=== PATIENT | male | born 1970 | race Caucasian/White ===

== ENCOUNTER → 2017-10-13 | Outpatient (CLI) | payer BC ==
[2017-10-13 14:52] LABS: Basophils # (A) 0.1 k/uL (0-0.2); Basophils % (A) 0 %; Eosinophils # (A) 0.3 k/uL (0-0.7); Eosinophils % (A) 3 %; HCT 44.6 % (39.0-53.0); Lymphocytes # (A) 1.4 k/uL (1.0-4.8); Lymphocytes % (A) 11 %; MCH 30.4 pg (25.0-35.0); MCHC 33.7 g/dL (31.0-37.0); MCV 90.3 fL (80.0-100.0); Mean Platelet Volume 7.3; Monocytes # (A) 0.8 k/uL (0-1.0); Monocytes % (A) 6 %; Neutrophils # (A) 9.9 k/uL (1.3-7.7); Neutrophils % (A) 79 %; Platelet Count 231 k/uL (150-450); RBC 4.94 m/uL (4.30-5.90); RDW 12.8 % (11.5-15.5); WBC 12.5 k/uL (3.8-10.6)
--- NOTE | 2017-10-13 15:16 | XR ---
EXAMINATION TYPE: XR chest 2V DATE OF EXAM: 10/13/2017 COMPARISON: None HISTORY: 47-year-old male coughing, bronchitis TECHNIQUE: Frontal and lateral views FINDINGS: The cardiomediastinal silhouette, aorta, and pulmonary vasculature are within normal limits. Mild dif fuse bronchial wall thickening. Interstitial prominence. No consolidation, pleural effusion, or pneum othorax. ACDF hardware. IMPRESSION: Findings suggest bronchitis or asthma. No focal pneumonia.
== END | disposition home or self-care (01) ==
LOC: PROCWHC3 14:34
PROVIDERS: ATTEND Internal Medicine
DX: J40 Bronchitis, not specified as acute or chronic (principal); J12.9 Viral pneumonia, unspecified; J06.9 Acute upper respiratory infection, unspecified; B99.9 Unspecified infectious disease
CPT/HCPCS: 36415; 71046; 85025; 87502

== ENCOUNTER → 2017-11-04 | Outpatient (CLI) | payer BC ==
--- NOTE | 2017-11-05 05:32 | CT ---
EXAMINATION TYPE: CT urogram wo/w con DATE OF EXAM: 11/04/2017 COMPARISON: NONE HISTORY: 27-year-old male Lower abdominal pain, difficulty urinating and microscopic hematuria. TECHNIQUE: Contiguous axial scanning of the abdomen and pelvis performed with IV Contrast, patient in jected with 100 mL of Isovue 300. Delayed images through the kidneys and bladder were obtained. Coron al/sagittal reconstructions performed. 3-D reconstructions generated on a dedicated independent works tation. CT DLP: 2248.4 mGycm Automated exposure control for dose reduction was used. FINDINGS: Heart is normal size without pericardial effusion. Mild dependent atelectasis posterior lung bases. Tiny hiatal hernia. A couple scattered subcentimeter hypodensities in the liver too small for accurate CT characterizatio n, probable cyst. Small amount of focal fat along the anterior falciform ligament. Liver upper limits of normal in size at 16.7 cm. Portal venous system is patent. No biliary ductal dilatation. Gallbladder, adrenal glands, spleen, and pancreas appear within normal limits. Small fatty umbilical hernia. No nephrolithiasis or hydronephrosis. There is symmetric uptake and excretion of contrast from both k idneys. No suspicious filling defect within the collecting system or along the course of either urete r. There is uniform ectasia of the infrarenal abdominal aorta at 2.8 cm in fusiform ectasia of the left and right common iliac arteries at 1.7 and 1.6 cm, respectively. Mild atherosclerotic calcifications are present in the infrarenal segment and iliac arteries. No dilated small bowel, free fluid, or free air. Scattered nonenlarged mesenteric lymph nodes. Normal appendix. Mild stool burden. Mild diverticulosis of the descending and sigmoid colon. No peric olonic inflammatory change. Contrast excreted from the kidneys collects along the posterior half of the bladder. No suspicious fi lling defects seen along the posterior half of the bladder. Prostate gland measures 3.8 cm wide. Rectum appears normal. No abnormal fluid collection in the pelvi s or pelvic lymphadenopathy seen. Bones: Mild degenerative changes at the hips and mild degenerative disc disease lower lumbar spine. No osseo us destructive process. IMPRESSION: 1. NO NEPHROLITHIASIS, HYDRONEPHROSIS, RENAL MASS, OR SUSPICIOUS FILLING DEFECT WITHIN THE COLLECTING SYSTEMS OR URETERS. 2. SMALL FATTY UMBILICAL HERNIA. 3. FUSIFORM ECTASIA OF THE INFRARENAL ABDOMINAL AORTA (2.8 CM) AND ADDITIONAL ECTASIA OF THE COMMON I LIAC ARTERIES MEASURING UP TO 1.7 CM. 4. MILD DIVERTICULOSIS OF THE LEFT SIDE OF THE COLON.
== END | disposition home or self-care (01) ==
LOC: RADCTMAIN 15:50
PROVIDERS: ATTEND Urology
DX: K42.9 Umbilical hernia without obstruction or gangrene (principal); I77.811 Abdominal aortic ectasia; I77.89 Other specified disorders of arteries and arterioles; K57.30 Diverticulosis of large intestine without perforation or abscess without bleeding
CPT/HCPCS: 74178; 74400; Q9967

== ENCOUNTER → 2017-12-10 | Outpatient (CLI) | payer BC ==
--- NOTE | 2017-12-10 15:53 | US ---
EXAMINATION TYPE: US carotid duplex BILAT DATE OF EXAM: 12/10/2017 COMPARISON: NONE CLINICAL HISTORY: I77.9 carotid artery stenosis,. Hx of vision discoloration with fluid build up in l eft eye. Patient recently had a vision dye test and states it took 3X as long to go through. No HTN . Hx of high cholesterol EXAM MEASUREMENTS: RIGHT: Peak Systolic Velocity (PSV) cm/sec ----- Right CCA: 117.2 ----- Right ICA: 87.1 ----- Right ECA: 125.9 ICA/CCA ratio: 0.7 RIGHT: End Diastole cm/sec ----- Right CCA: 24.1 ----- Right ICA: 33.3 ----- Right ECA: 24.1 LEFT: Peak Systolic Velocity (PSV) cm/sec ----- Left CCA: 110.8 ----- Left ICA: 97.8 ----- Left ECA: 110.8 ICA/CCA ratio: 0.9 LEFT: End Diastole cm/sec ----- Left CCA: 28.4 ----- Left ICA: 26.7 ----- Left ECA: 15.0 VERTEBRALS (direction of flow): Right Vertebral: Antegrade Left Vertebral: Antegrade Rhythm: Normal No plaque, significant stenosis seen. Slightly elevated left proximal and mid CCA. Intimal thicken ing noted. IMPRESSION: No significant hemodynamic stenosis. Criteria for Assigning % of Stenosis / Diameter reduction (Estimation based on the indirect measurements of the internal carotid artery velocities (ICA PSV). 1. Normal (no stenosis)=ICA PSV < 125 cm/s: ratio < 2.0: ICA EDV<40 cm/s. 2. Less than 50% stenosis=ICA PSV < 125 cm/s: ratio < 2.0: ICA EDV<40 cm/s. 3. 50 to 69% stenosis=ICA PSV of 125 to 230 cm/s: ration 2.0 ? 4.0: ICA EDV 40-100 cm/s. 4. Greater than 70% stenosis to near occlusion= ICA PSV > 230 cm/s: ratio > 4.0: ICA EDV > 100 cm/s. 5. Near occlusion= ICA PSV velocities may be low or undetectable: variable ratio and ICA EDV. 6. Total occlusion=unable to detect flow.
--- NOTE | 2017-12-11 10:22 | ECHOF ---
Referral Reason:I77.9 carotid artery stenosis, MEASUREMENTS -------- HEIGHT: 177.8 cm WEIGHT: 102.1 kg BP: 159/85 RVIDd: 3.3 cm (< 3.3) IVSd: 1.2 cm (0.6 - 1.1) LVIDd: 5.2 cm (3.9 - 5.3) LVPWd: 1.2 cm (0.6 - 1.1) IVSs: 1.6 cm LVIDs: 3.0 cm LVPWs: 1.6 cm LAESV Index (A-L): 24.64 ml/m Ao Diam: 2.9 cm (2.0 - 3.7) AV Cusp: 2.0 cm (1.5 - 2.6) LA Diam: 3.4 cm (2.7 - 3.8) EPSS: 0.1 cm MV E Elan: 0.82 m/s MV DecT: 262 ms MV A Elan: 0.57 m/s MV E/A Ratio: 1.44 RAP: 5.00 mmHg RVSP: 12.66 mmHg MV EF SLOPE: 114.59 mm/s (70 - 150) MV EXCURSION: 1.59 cm (> 18.000) FINDINGS -------- Sinus rhythm. This was a technically adequate study. The left ventricular size is normal. There is mild concentric left ventricular hypertrophy. Overa ll left ventricular systolic function is normal with, an EF between 55 - 60 %. The right ventricle is mildly enlarged. Normal LA size by volume 22+/-6 ml/m2. RA appears enlarged. The aortic valve is trileaflet, and appears structurally normal. No aortic stenosis or regurgitation. The mitral valve leaflets are mildly thickened. There is trace to mild mitral regurgitation. Trace tricuspid regurgitation present. Right ventricular systolic pressure is normal at < 35 mmHg. There is no evidence of pulmonary hypertension. Trace/mild (physiologic) pulmonic regurgitation. The aortic root size is normal. Normal inferior vena cava with normal inspiratory collapse consistent with estimated right atrial pre ssure of 5 mmHg. There is no pericardial effusion. CONCLUSIONS -------- 1. Sinus rhythm. 2. This was a technically adequate study. 3. The left ventricular size is normal. 4. There is mild concentric left ventricular hypertrophy. 5. Overall left ventricular systolic function is normal with, an EF between 55 - 60 %. 6. The right ventricle is mildly enlarged. 7. Normal LA size by volume 22+/-6 ml/m2. 8. RA appears enlarged. 9. The aortic valve is trileaflet, and appears structurally normal. No aortic stenosis or regurgitati on. 10. The mitral valve leaflets are mildly thickened. 11. There is trace to mild mitral regurgitation. 12. Trace tricuspid regurgitation present. 13. Right ventricular systolic pressure is normal at < 35 mmHg. 14. There is no evidence of pulmonary hypertension. 15. Trace/mild (physiologic) pulmonic regurgitation. 16. The aortic root size is normal. 17. There is no pericardial effusion. PICKLE CUTTER: Michael Soni RDCS
== END | disposition home or self-care (01) ==
LOC: RADECHMAIN 15:09
PROVIDERS: ATTEND Internal Medicine
DX: I65.22 Occlusion and stenosis of left carotid artery (principal); I51.7 Cardiomegaly; I34.0 Nonrheumatic mitral (valve) insufficiency
CPT/HCPCS: 93306; 93880

== ENCOUNTER → 2019-06-01 | Outpatient (CLI) | payer BC ==
--- NOTE | 2019-06-01 12:35 | XR ---
EXAMINATION TYPE: XR chest 2V DATE OF EXAM: 06/01/2019 COMPARISON: 10/13/2017 TECHNIQUE: PA and lateral views submitted. HISTORY: Cough FINDINGS: The lungs are clear and there is no pneumothorax, pleural effusion, or focal pneumonia. Postsurgica l change overlying the cervical spine. Arthropathy of the shoulders. No overt failure. Hypertrophic c hange of the vertebral column. Biapical pleural thickening. IMPRESSION: 1. No acute process.
[2019-06-01 13:43] LABS: Basophils # (A) 0.1 k/uL (0-0.2); Basophils % (A) 1 %; Eosinophils % (A) 9 %; HCT 44.8 % (39.0-53.0); HGB 15.3 gm/dL (13.0-17.5); Lymphocytes % (A) 27 %; MCH 32.3 pg (25.0-35.0); MCHC 34.1 g/dL (31.0-37.0); MCV 94.5 fL (80.0-100.0); Mean Platelet Volume 6.1; Monocytes # (A) 0.7 k/uL (0-1.0); Monocytes % (A) 6 %; Neutrophils # (A) 5.9 k/uL (1.3-7.7); Neutrophils % (A) 54 %; Platelet Count 250 k/uL (150-450); RBC 4.74 m/uL (4.30-5.90); RDW 12.7 % (11.5-15.5)
== END | disposition home or self-care (01) ==
LOC: RADXRMAIN 12:12
PROVIDERS: ATTEND Internal Medicine
DX: R05 Cough (principal); J06.9 Acute upper respiratory infection, unspecified; J12.9 Viral pneumonia, unspecified
CPT/HCPCS: 36415; 71046; 85025

== ENCOUNTER → 2020-05-15 | Outpatient (CLI) | payer BC ==
[2020-05-15 16:56] LABS: Basophils # (A) 0.1 k/uL (0-0.2); Basophils % (A) 1 %; Eosinophils # (A) 0.8 k/uL (0-0.7); Eosinophils % (A) 9 %; HCT 46.1 % (39.0-53.0); HGB 15.3 gm/dL (13.0-17.5); Lymphocytes # (A) 2.3 k/uL (1.0-4.8); Lymphocytes % (A) 26 %; MCH 30.9 pg (25.0-35.0); MCHC 33.1 g/dL (31.0-37.0); MCV 93.4 fL (80.0-100.0); Mean Platelet Volume 7.4; Monocytes # (A) 0.6 k/uL (0-1.0); Monocytes % (A) 7 %; Neutrophils # (A) 4.8 k/uL (1.3-7.7); Neutrophils % (A) 55 %; Platelet Count 241 k/uL (150-450); RBC 4.93 m/uL (4.30-5.90); RDW 12.8 % (11.5-15.5); WBC 8.7 k/uL (3.8-10.6)
--- NOTE | 2020-05-16 13:41 | XR ---
EXAMINATION TYPE: XR chest 2V DATE OF EXAM: 05/15/2020 CLINICAL HISTORY: Bronchitis. Cough and congestion. TECHNIQUE: Frontal and lateral views of the chest are obtained. COMPARISON: Chest radiograph 06/01/2019 FINDINGS: Cervical spine fusion hardware. The cardiomediastinal silhouette is within normal limits f or size. Pulmonary vasculature is normal. There is no focal air space opacity, pleural effusion, or p neumothorax seen. The osseous structures are intact. IMPRESSION: No acute cardiopulmonary process.
== END | disposition home or self-care (01) ==
LOC: LABWHC1 16:20
PROVIDERS: ATTEND Internal Medicine
DX: J12.9 Viral pneumonia, unspecified (principal); J06.9 Acute upper respiratory infection, unspecified
CPT/HCPCS: 36415; 71046; 85025

== ENCOUNTER → 2020-09-19 | Outpatient (CLI) | payer BC ==
[2020-09-19 15:12] LABS: Basophils # (A) 0.08 X 10*3/uL (0.00-0.10); Basophils % (A) 0.8 %; Eosinophils # (A) 0.53 X 10*3/uL (0.04-0.35); HCT 42.9 % (39.6-50.0); HGB 14.6 g/dL (13.0-17.0); Lymphocytes # (A) 2.69 X 10*3/uL (0.90-5.00); Lymphocytes % (A) 25.4 %; MCH 31.6 pg (27.0-32.0); MCV 92.9 fL (80.0-97.0); Mean Platelet Volume 11.4 fL (9.5-12.2); Monocytes # (A) 1.01 X 10*3/uL (0.20-1.00); Monocytes % (A) 9.5 %; Neutrophils # (A) 6.24 X 10*3/uL (1.80-7.70); Neutrophils % (A) 58.9 %; Platelet Count 230 X 10*3/uL (140-440); RBC 4.62 X 10*6/uL (4.40-5.60); WBC 10.59 X 10*3/uL (4.50-10.00)
[2020-09-19 16:43] LABS: Erythrocyte Sedimentation Rate 6 mm/Hr (0-20)
[2020-09-19 17:58] LABS: ALT 20 U/L (10-49); AST 20 U/L (14-35); African American GFR (CKD) 119.9 (60.0-200.0); Alkaline Phosphatase 53 U/L (41-126); BUN/Creat Ratio 18.75 Ratio (12.00-20.00); C Reactive Protein <0.4 mg/dL (0.0-0.8); Calcium 9.3 mg/dL (8.7-10.3); Carbon Dioxide 27.7 mmol/L (21.6-31.8); Chloride 107 mmol/L (96-109); Chol/HDL Ratio 3.94; Cholesterol 201 mg/dL (0-200); Creatine Kinase 164 U/L (35-257); Glucose 93 mg/dL (70-110); LDL Cholesterol,Calculated 129.4 mg/dL (0.0-131.0); Magnesium 2.1 mg/dL (1.5-2.4); Non-African American GFR(CKD) 103.4 (60.0-200.0); Prostate Specific Antigen 0.8 ng/mL (0.0-3.5); Sodium 141 mmol/L (135-145); Total Bilirubin 0.5 mg/dL (0.2-1.2); Total Protein 6.6 g/dL (6.2-8.2)
== END | disposition home or self-care (01) ==
LOC: LABWHC1 09:54
PROVIDERS: ATTEND Internal Medicine
DX: Z00.00 Encounter for general adult medical examination without abnormal findings (principal); D64.9 Anemia, unspecified; N40.0 Benign prostatic hyperplasia without lower urinary tract symptoms; E78.5 Hyperlipidemia, unspecified; E55.9 Vitamin D deficiency, unspecified
CPT/HCPCS: 36415; 80053; 80061; 82306; 82550; 83735; 84153; 84443; 85025; 85652; 86140

== ENCOUNTER → 2020-12-26 | Outpatient (CLI) | payer BC ==
[2020-12-26 23:00] LABS: Basophils # (A) 0.09 X 10*3/uL (0.00-0.10); Basophils % (A) 1.1 %; Eosinophils # (A) 0.35 X 10*3/uL (0.04-0.35); Eosinophils % (A) 4.2 %; HCT 43.4 % (39.6-50.0); HGB 14.4 g/dL (13.0-17.0); Lymphocytes # (A) 2.99 X 10*3/uL (0.90-5.00); Lymphocytes % (A) 35.9 %; MCH 30.6 pg (27.0-32.0); MCHC 33.2 g/dL (32.0-37.0); MCV 92.3 fL (80.0-97.0); Mean Platelet Volume 11.4 fL (9.5-12.2); Monocytes # (A) 0.69 X 10*3/uL (0.20-1.00); Monocytes % (A) 8.3 %; Neutrophils # (A) 4.19 X 10*3/uL (1.80-7.70); Neutrophils % (A) 50.1 %; Platelet Count 229 X 10*3/uL (140-440); RDW 12.7 % (11.5-14.5); WBC 8.34 X 10*3/uL (4.50-10.00)
[2020-12-27 01:14] LABS: Erythrocyte Sedimentation Rate 12 mm/Hr (0-20)
[2020-12-27 01:37] LABS: Anti-DNA, DS unit <1.0 IU/mL; Cyclic Citrull Pep IgG Unit <0.5 U/mL; Cyclic Citrullinated Pep IgG NEGATIVE (NEGATIVE); DNA Double-Stranded NEGATIVE (NEGATIVE)
--- NOTE | 2020-12-27 09:12 | XR ---
Bilateral knees HISTORY: Pain 3 views of each knee submitted Postop changes are noted to the right knee, there is tricompartmental marginal spurring, joint space loss is present in the medial compartment, patellofemoral joint. No fracture or dislocation. No evide nt joint effusion. Chondrocalcinosis noted in the right knee. Left knee shows normal alignment, bone mineralization, joint spaces. IMPRESSION: Postop changes right knee, osteoarthritis, correlate for possible crystal deposition arth ropathy.
--- NOTE | 2020-12-27 09:14 | XR ---
Sacroiliac joints HISTORY: Pain 3 views the sacroiliac joints There is no ankylosis, erosion, or significant hypertrophic change. Bone mineralization and joint spa sameer are maintained. IMPRESSION: Normal sacroiliac joints.
--- NOTE | 2020-12-27 09:14 | XR ---
AP pelvis HISTORY: Pain Single frontal view of the pelvis There is hypertrophic change present greater on the left hip than on the right, acetabulum shows some increased coverage of the femoral head, correlate for possible acetabular femoral impingement. Some marginal spurring is present bilaterally. Alignment and bone mineralization are maintained. Sclerotic focus in the acetabular roof may represent a bone island. No fracture or dislocation. Probable phleb oliths present within the pelvis. IMPRESSION: Osteoarthritis and additional findings above.
--- NOTE | 2020-12-27 09:17 | XR ---
Lumbosacral spine HISTORY: Pain 5 views lumbosacral spine, no comparisons There is a slight spinal curvature. No evident spondylolysis or spondylolisthesis. There is multileve l spondylosis. Loss of disc height is greatest at L5-S1. Sclerosis is present in the posterior elemen ts of the lower lumbar spine. Atherosclerotic calcification present in the distribution of the aorta iliac region. Lumbar vertebral bodies show preserved height and bone mineralization. IMPRESSION: Degenerative disc disease and facet arthropathy, slight spinal curvature.
[2020-12-27 13:59] LABS: African American GFR (CKD) 114.2 (60.0-200.0); Albumin 4.7 g/dL (3.80-4.90); Albumin/Globulin Ratio 1.81 (1.60-3.17); Anion Gap 11.6 mmol/L (4.00-12.00); BUN/Creat Ratio 14.44 Ratio (12.00-20.00); C Reactive Protein 0.8 mg/dL (0.0-0.8); Calcium 9.6 mg/dL (8.7-10.3); Carbon Dioxide 22.4 mmol/L (21.6-31.8); Globulin 2.6 g/dL (1.6-3.3); Non-African American GFR(CKD) 98.5 (60.0-200.0); Potassium 3.9 mmol/L (3.5-5.5); Total Bilirubin 0.5 mg/dL (0.3-1.2); Total Protein 7.3 g/dL (6.2-8.2)
[2020-12-28 13:27] LABS: HLA B27 NEGATIVE
== END | disposition home or self-care (01) ==
LOC: LABWHC1 16:25
PROVIDERS: ATTEND Internal Medicine
DX: M17.11 Unilateral primary osteoarthritis, right knee (principal); M45.9 Ankylosing spondylitis of unspecified sites in spine; E55.9 Vitamin D deficiency, unspecified; D89.9 Disorder involving the immune mechanism, unspecified; M81.0 Age-related osteoporosis without current pathological fracture
CPT/HCPCS: 36415; 72110; 72170; 72202; 80053; 82306; 85025; 85652; 86038; 86140; 86200; 86225; 86431; 86812

== ENCOUNTER → 2021-09-10 | Outpatient (CLI) | payer BC ==
--- NOTE | 2021-09-10 14:40 | XR ---
EXAMINATION TYPE: XR chest 2V DATE OF EXAM: 09/10/2021 COMPARISON: 05/15/2020 TECHNIQUE: PA and lateral views submitted. HISTORY: Shortness of breath FINDINGS: The lungs are clear and there is no pneumothorax, pleural effusion, or focal pneumonia. Postsurgica l change overlying the cervical spine. Arthropathy of the shoulders. Heart size normal. No overt fail ure. Hyperinflation suggests COPD. IMPRESSION: 1. Correlate for COPD..
== END | disposition home or self-care (01) ==
LOC: RADXRMAIN 14:18
PROVIDERS: ATTEND Internal Medicine
DX: R05.9 Cough, unspecified (principal)
CPT/HCPCS: 71046

== ENCOUNTER → 2021-10-01 | Outpatient (CLI) | payer BC ==
[2021-10-01 18:28] LABS: Basophils # (A) 0.02 X 10*3/uL (0.00-0.10); Basophils % (A) 0.2 %; Eosinophils # (A) 0.29 X 10*3/uL (0.04-0.35); Eosinophils % (A) 3.4 %; HCT 45.3 % (39.6-50.0); HGB 14.8 g/dL (13.0-17.0); Immature Grans, Automated 0.6 %; Lymphocytes % (A) 23.4 %; MCH 31.5 pg (27.0-32.0); MCHC 32.7 g/dL (32.0-37.0); MCV 96.4 fL (80.0-97.0); Mean Platelet Volume 10.4 fL (9.5-12.2); Monocytes # (A) 1.28 X 10*3/uL (0.20-1.00); NRBC Per 100 WBC 0 /100 WBCS (0.0-0.0); Neutrophils # (A) 4.92 X 10*3/uL (1.80-7.70); Neutrophils % (A) 57.4 %; Platelet Count 214 X 10*3/uL (140-440); RDW 13.7 % (11.5-14.5); WBC 8.56 X 10*3/uL (4.50-10.00)
[2021-10-01 20:19] LABS: Albumin 4.2 g/dL (3.8-4.9); Albumin/Globulin Ratio 1.49 (1.60-3.17); Anion Gap 10.4 mmol/L (10.00-18.00); BUN/Creat Ratio 18.38 Ratio (12.00-20.00); Blood Urea Nitrogen 14.7 mg/dL (9.0-27.0); C Reactive Protein 0.6 mg/dL (0.00-0.80); Calcium 9.1 mg/dL (8.7-10.3); Carbon Dioxide 22.6 mmol/L (20.0-27.5); Globulin 2.8 g/dL (1.6-3.3); Non-African American GFR(CKD) 102.7 (60.0-200.0); Potassium 4.4 mmol/L (3.5-5.5); Total Bilirubin 0.4 mg/dL (0.30-1.20)
== END | disposition home or self-care (01) ==
LOC: LABWHC1 11:40
PROVIDERS: ATTEND Internal Medicine
DX: J44.9 Chronic obstructive pulmonary disease, unspecified (principal); J06.9 Acute upper respiratory infection, unspecified; U09.9 Post COVID-19 condition, unspecified
CPT/HCPCS: 36415; 80053; 85025; 86140

== ENCOUNTER → 2022-08-21 | Outpatient (CLI) | payer BC ==
[2022-08-21 23:28] LABS: WBC 9.81 X 10*3/uL (4.50-10.00)
[2022-08-21 23:29] LABS: Basophils # (A) 0.08 X 10*3/uL (0.00-0.10); Basophils % (A) 0.8 %; Eosinophils # (A) 0.36 X 10*3/uL (0.04-0.35); Eosinophils % (A) 3.7 %; HCT 46.2 % (39.6-50.0); HGB 15.5 g/dL (13.0-17.0); Immature Grans, Automated 0.3 %; Lymphocytes # (A) 2.98 X 10*3/uL (0.90-5.00); Lymphocytes % (A) 30.4 %; MCH 31.8 pg (27.0-32.0); MCHC 33.5 g/dL (32.0-37.0); MCV 94.9 fL (80.0-97.0); Mean Platelet Volume 11.2 fL (9.5-12.2); Monocytes # (A) 0.92 X 10*3/uL (0.20-1.00); Monocytes % (A) 9.4 %; NRBC Per 100 WBC 0 /100 WBCS (0.0-0.0); Neutrophils # (A) 5.44 X 10*3/uL (1.80-7.70); Neutrophils % (A) 55.4 %; Platelet Count 278 X 10*3/uL (140-440); RBC 4.87 X 10*6/uL (4.40-5.60); RDW 13.1 % (11.5-14.5)
[2022-08-22 00:25] LABS: Erythrocyte Sedimentation Rate 10 mm/Hr (0-20)
[2022-08-22 14:28] LABS: Chol/HDL Ratio 5.38 Ratio; LDL Cholesterol,Calculated 147.9 mg/dL (0.0-131.0)
[2022-08-22 14:38] LABS: ALT 23 U/L (10-49); AST 21 U/L (14-35); African American GFR (CKD) 105.6 (60.0-200.0); Albumin 4.6 g/dL (3.8-4.9); Albumin/Globulin Ratio 1.81 (1.60-3.17); Alkaline Phosphatase 55 U/L (41-126); BUN/Creat Ratio 18.34 Ratio (12.00-20.00); Blood Urea Nitrogen 17.4 mg/dL (9.0-27.0); Calcium 9.2 mg/dL (8.7-10.3); Chloride 104 mmol/L (96-109); Creatine Kinase 100 U/L (35-257); Globulin 2.5 g/dL (1.6-3.3); Glucose 80 mg/dL (70-110); Magnesium 2.3 mg/dL (1.5-2.4); Non-African American GFR(CKD) 91.1 (60.0-200.0); Phosphorus 3.9 mg/dL (2.4-5.1); Potassium 4.3 mmol/L (3.5-5.5); Sodium 141 mmol/L (135-145); Total Protein 7.1 g/dL (6.2-8.2)
== END | disposition home or self-care (01) ==
LOC: LABWHC1 15:13
PROVIDERS: ATTEND Internal Medicine
DX: Z00.00 Encounter for general adult medical examination without abnormal findings (principal); D64.9 Anemia, unspecified; N40.0 Benign prostatic hyperplasia without lower urinary tract symptoms; J44.9 Chronic obstructive pulmonary disease, unspecified; E78.5 Hyperlipidemia, unspecified; E55.9 Vitamin D deficiency, unspecified; E03.9 Hypothyroidism, unspecified
CPT/HCPCS: 36415; 80053; 80061; 82306; 82550; 83735; 84100; 84153; 84443; 85025; 85652; 86140